=== PATIENT | male | born 1970 | race Caucasian/White ===

== ENCOUNTER → 2023-09-05 17:06 | Outpatient (REF) | payer BC, SELFPAY | LOC: RAD 17:06 | PROVIDERS: ATTENDING PHYSICIAN Physical Medicine & Rehabilitation; FAMILY PHYSICIAN Nurse Practitioner | DX: Z13.89 Encounter for screening for other disorder (principal); M54.12 Radiculopathy, cervical region | CPT/HCPCS: 70030; 72141 ==

== ENCOUNTER → 2024-11-15 10:43 | Outpatient (REF) | payer BC, SELFPAY | LOC: RAD 10:43 | PROVIDERS: ATTENDING PHYSICIAN Physician Assistant; FAMILY PHYSICIAN Nurse Practitioner | DX: M54.41 Lumbago with sciatica, right side (principal) | CPT/HCPCS: 72110; 73502 ==